=== PATIENT | female | born 1985 | race Two or more races ===

== ENCOUNTER 2020-04-18 18:20 | Inpatient (IN) | payer MEDICAID, OTHER ==
[~2020-04-18] VITALS: Ht 167.6 cm; Wt 85.8 kg
[2020-04-18] MEDS ORDERED: SODIUM CHLORIDE 0.9% 1,000 ML IV ONE ×2 (18:51→19:54)
[2020-04-18] MEDS ORDERED: KETOROLAC TROMETH 30 MG/ML 1ML VIAL IV ONE (19:00)
[2020-04-18 21:18] LABS: Eosinophils # (auto) 0 10 ^3/uL (0-0.8); Eosinophils % (auto) 0.2 % (0.0-7.0); Hemoglobin 10.6 g/dL (12.2-16.2); Lymphocytes # (auto) 1.1 10 ^3/uL (0.4-5.4); Neutrophils % (auto) 83.7 % (37.0-80.0)
[2020-04-18 21:19] LABS: Basophils # (auto) 0 10 ^3/uL (0-0.2); Basophils % (auto) 0.4 % (0.0-2.0); Hematocrit 34.9 % (36.0-46.0); Mean Corpuscular Hemoglobin 22.1 pg (28.0-32.0); Mean Corpuscular Hgb Conc. 30.4 g/dL (32.0-36.0); Mean Corpuscular Volume 72.8 fL (80.0-100.0); Monocytes # (auto) 0.3 10 ^3/uL (0-1.3); Monocytes % (auto) 3.7 % (0.0-12.0); Neutrophils # (auto) 7.9 10 ^3/uL (1.6-8.6); Platelet Count (auto) 264 10^3/uL (140-450); Red Blood Cells 4.79 10^6/uL (4.0-5.20); White Blood Cell 9.4 10^3/uL (4.4-10.8)
[2020-04-18 21:20] LABS: Red Cell Distribution Width 20.1 % (11.8-14.3)
[2020-04-18 21:36] LABS: CRP High Sensitivity 0.27 mg/dL (< 0.3)
[2020-04-18 21:37] LABS: Albumin 3.8 g/dL (3.4-5.0); BUN/Creatinine Ratio 9.7; Calcium 9.1 mg/dL (8.5-10.1); Potassium 3.6 mmol/L (3.5-5.1)
[2020-04-18 21:39] LABS: Urine Bacteria FEW /hpf (None Seen); Urine Blood Negative /uL (Negative); Urine Mucus FEW (None Seen); Urine Specific Gravity 1.031 (1.001-1.035); Urine WBC 1 /hpf (0 - 5)
[2020-04-18 21:40] LABS: Bilirubin, Total 0.3 mg/dL (0.2-1.0); Total Protein 8.2 g/dL (6.4-8.2)
[2020-04-19] MEDS ORDERED: AZITHROMYCIN 500MG/ 250ML 250 ML IV ONE (01:15)
[2020-04-19] MEDS ORDERED: cefTRIAXone 1GM/50ML D5W 50 ML IV ONE (01:15)
[2020-04-19] MEDS ORDERED: PROMETHAZINE HCL 25 MG/ML 1ML IV ONE (03:30)
[2020-04-19] MEDS ORDERED: LORazepam 2MG/ML-1ML VIAL IV ONE (05:00)
[2020-04-19] MEDS ORDERED: SODIUM CHLORIDE 0.9% 1,000 ML IV SCH (05:28)
[2020-04-19] MEDS ORDERED: NITROGLYCERIN 0.4 MG SL TAB SL PRN (05:30)
[2020-04-19] MEDS ORDERED: MORPHINE SULF INJ 2 MG/ML SYRINGE 1ML IV PRN (05:30)
[2020-04-19] MEDS: ALBUTEROL SULF HFA 90MCG INH 200DOSE IN SCH ×3 (06:00→22:00)
[2020-04-19] MEDS ORDERED: ALBUMIN 5% 250 ML IV ONE (07:00)
[2020-04-19] MEDS: cefTRIAXone 1GM/50ML D5W 50 ML IV SCH (09:35)
[2020-04-19] MEDS ORDERED: AZITHROMYCIN 500MG/ 250ML 250 ML IV SCH (10:00)
[2020-04-19] MEDS ORDERED: ENOXAPARIN SOD 40 MG/0.4 ML SYRINGE SC SCH (10:00)
[2020-04-19] MEDS: ZINC SULFATE 220mg CAP or TAB PO SCH (10:34)
[2020-04-19] MEDS: ASCORBIC ACID 1,000 MG TAB PO SCH (10:34)
[2020-04-19] MEDS: CHOLECALCIFEROL (VITD3) 2,000 UNIT CAP PO SCH (10:35)
[2020-04-19] MEDS: FAMOTIDINE 20 MG TAB PO SCH ×2 (10:35→21:11)
[2020-04-19] MEDS ORDERED: LEVOTHYROXINE SODIUM 100 MCG/5 ML INJ IV ONE (12:30)
[2020-04-19 13:46] VITALS: BP 102/52
[2020-04-19] MEDS: SODIUM CHLORIDE 0.9% 1,000 ML IV SCH ×2 (14:30→20:27)
[2020-04-19] MEDS: ONDANSETRON HCL 4 MG/2 ML VIAL IV PRN (15:37)
[2020-04-19] MEDS ORDERED: LEVO125T7 PO (18:49)
--- NOTE | 2020-04-19 20:00 | NUR ---
Opening Shift Note Assumed care of patient, awake and alert. No S/S of distress/SOB or pain. Instructed on POC and to call for assist PRN, will continue to monitor for changes Q1hr and prn. bed in low position and call light within reach.
--- NOTE | 2020-04-19 20:05 | NUR ---
IV insertion/IV removal IV DC'd with clean sterile technique, catheter fully intact. Pressure dressing applied to site. Patient tolerated well. IV access obtained, via clean sterile technique by inserting 22 gauge catheter at right FA after first attempt. IV secured properly. No trauma to site. Patient tolerated well.
--- NOTE | 2020-04-19 20:58 | NUR ---
Respiratory note: PT ASSESSED AT THIS TIME. HR 77, SPO2 98% ON ROOM AIR, RR 16. PT IN NO RESPIRATORY DISTRESS, MDI HELD AT THIS TIME. WILL CONTINUE TO MONITOR.
[2020-04-19] MEDS: HEPARIN SODIUM (PORCINE) 5000 UNITS/ML 1ML VIAL SC SCH (21:12)
[2020-04-19 21:52] VITALS: BP 93/49
--- NOTE | 2020-04-19 21:58 | NUR ---
per label folder saul will put in orders for am labs instead of scheduled time as they are not able to run hepatitis panel today.
[2020-04-20] MEDS: SODIUM CHLORIDE 0.9% 1,000 ML IV SCH (04:31)
[2020-04-20 05:00] VITALS: BP 109/71
[2020-04-20] MEDS: HEPARIN SODIUM (PORCINE) 5000 UNITS/ML 1ML VIAL SC SCH (05:29)
[2020-04-20 05:47] LABS: Basophils # (auto) 0 10 ^3/uL (0-0.2); Hemoglobin 8.8 g/dL (12.2-16.2); Nucleated Red Blood Cells % 0.1 %
[2020-04-20 05:49] LABS: Basophils % (auto) 0.7 % (0.0-2.0); Eosinophils # (auto) 0.1 10 ^3/uL (0-0.8); Eosinophils % (auto) 1.3 % (0.0-7.0); Hematocrit 28.2 % (36.0-46.0); Lymphocytes # (auto) 1.9 10 ^3/uL (0.4-5.4); Lymphocytes % (auto) 38.5 % (10.0-50.0); Mean Corpuscular Hemoglobin 22.9 pg (28.0-32.0); Mean Corpuscular Hgb Conc. 31.4 g/dL (32.0-36.0); Monocytes # (auto) 0.2 10 ^3/uL (0-1.3); Monocytes % (auto) 4.9 % (0.0-12.0); Neutrophils # (auto) 2.6 10 ^3/uL (1.6-8.6); Neutrophils % (auto) 54.6 % (37.0-80.0); Platelet Count (auto) 237 10^3/uL (140-450); Red Blood Cells 3.86 10^6/uL (4.0-5.20); Red Cell Distribution Width 20.7 % (11.8-14.3); White Blood Cell 4.8 10^3/uL (4.4-10.8)
[2020-04-20 06:03] LABS: Albumin 2.8 g/dL (3.4-5.0); Magnesium 2.3 mg/dL (1.6-2.6); Potassium 3.8 mmol/L (3.5-5.1)
[2020-04-20 06:07] LABS: BUN/Creatinine Ratio 9.1; Bilirubin, Total 0.2 mg/dL (0.2-1.0); Phosphorus 2.5 mg/dL (2.5-4.90)
--- NOTE | 2020-04-20 06:46 | NUR ---
patient rounds patient is awake and alert denies sob distress or pain. bed in low position. iv is intact and patent. bed in low position and call light within reach.
--- NOTE | 2020-04-20 07:32 | NUR ---
report given to pilo [email or web address]
[2020-04-20] MEDS: ALBUTEROL SULF HFA 90MCG INH 200DOSE IN SCH ×3 (07:35→20:47)
--- NOTE | 2020-04-20 07:35 | NUR ---
Respiratory note: MDI GIVEN BY RT, TOLERATED WELL. HR 64, RR 14, SPO2 98% RA, BS CLEAR AND DIMINISHED. NO SIGNS OR SYMPTOMS OF RESPIRATORY DISTRESS NOTED. WILL CONTINUE TO MONITOR ORDERED. Addendum: 04/20/20 at 0907 by SHAHIDA ALVAREZ RT CORRECTION. MDI NOT GIVEN. MDI NOT AVAILABLE FROM PHARMACY AT THIS TIME. PHARMACY WILL BE CONTACTED FOR MEDS WHEN COVID RESULTS BECOME AVAILABLE.
[2020-04-20 08:39] VITALS: BP 105/69
[2020-04-20] MEDS: PRENATAL VITAMIN TAB PO SCH ×2 (10:00→13:14)
[2020-04-20] MEDS: LEVOTHYROXINE SODIUM 100 MCG/5 ML INJ IV SCH (10:30)
[2020-04-20] MEDS: cefTRIAXone 1GM/50ML D5W 50 ML IV SCH (10:30)
[2020-04-20] MEDS: CHOLECALCIFEROL (VITD3) 2,000 UNIT CAP PO SCH (10:30)
[2020-04-20] MEDS: ZINC SULFATE 220mg CAP or TAB PO SCH (10:31)
[2020-04-20] MEDS: ASCORBIC ACID 1,000 MG TAB PO SCH (10:31)
[2020-04-20] MEDS: FAMOTIDINE 20 MG TAB PO SCH ×2 (10:31→22:21)
[2020-04-20] MEDS: ONDANSETRON HCL 4 MG/2 ML VIAL IV PRN (11:38)
[2020-04-20 12:43] VITALS: BP 119/74
[2020-04-20] MEDS: IRON SUCROSE COMPLEX 200 MG in SODIUM CHL 0.9% 100 ML IV SCH (13:12)
[2020-04-20] MEDS ORDERED: ENOXAPARIN SOD 40 MG/0.4 ML SYRINGE SC ONE (13:15)
--- NOTE | 2020-04-20 15:00 | NUR ---
Respiratory note: MEDICATION HELD WITH PENDING COVID RESULTS. PT IS NOT DISPLAYING RESPIRATORY DISTRESS AT THIS TIME. HR 66, RR 16, SPO2 99% ON RA. RN AWARE OF HELD MEDICATION.
[2020-04-20 16:54] VITALS: BP 117/75
--- NOTE | 2020-04-20 20:05 | NUR ---
open note assumed care of pt. upon entering room pt eyes are closed, breathing is even and unlabored on room air. pt bed locked, low and 2x rails up. call light in reach. pt does not appear to be in any distress. this nurse will return at later time to update pt on plan of care. this nurse to round q1hr and prn.
--- NOTE | 2020-04-20 21:22 | NUR ---
Respiratory note: MDI HELD AT THIS TIME AWAITING COVID RESULTS. NO DISTRESS NOTED, PULSE OX 100% ON RA, HR 66, RR 18
[2020-04-20 23:42] VITALS: BP 111/70
[2020-04-21 05:04] VITALS: BP 92/55
[2020-04-21] MEDS: ALBUTEROL SULF HFA 90MCG INH 200DOSE IN SCH ×3 (06:00→21:28)
[2020-04-21 07:06] LABS: RPR Non Reactive (Non Reactive)
[2020-04-21 08:43] VITALS: BP 103/61
[2020-04-21] MEDS: cefTRIAXone 1GM/50ML D5W 50 ML IV SCH (09:35)
[2020-04-21] MEDS: ASCORBIC ACID 1,000 MG TAB PO SCH (09:37)
[2020-04-21] MEDS: CHOLECALCIFEROL (VITD3) 2,000 UNIT CAP PO SCH (09:37)
[2020-04-21] MEDS: FAMOTIDINE 20 MG TAB PO SCH ×2 (09:37→21:56)
[2020-04-21] MEDS: ACETAMINOPHEN 325 MG TAB PO PRN ×2 (09:37→18:41)
[2020-04-21] MEDS: LEVOTHYROXINE SODIUM 100 MCG/5 ML INJ IV SCH (09:38)
[2020-04-21] MEDS: ZINC SULFATE 220mg CAP or TAB PO SCH (09:38)
[2020-04-21] MEDS: ENOXAPARIN SOD 40 MG/0.4 ML SYRINGE SC SCH (09:40)
[2020-04-21] MEDS: ONDANSETRON HCL 4 MG/2 ML VIAL IV PRN ×2 (11:51→17:23)
[2020-04-21] MEDS: PRENATAL VITAMIN TAB PO SCH (11:51)
[2020-04-21] MEDS ORDERED: ACETAMINOPHEN 500 MG TAB PO ONE (12:00)
[2020-04-21 13:00] VITALS: BP 103/72
[2020-04-21] MEDS: IRON SUCROSE COMPLEX 200 MG in SODIUM CHL 0.9% 100 ML IV SCH (13:47)
[2020-04-21 16:39] VITALS: BP 106/64
--- NOTE | 2020-04-21 21:28 | NUR ---
RT NOTE PT WAS SEEN BY RT FOR MDI TX. PT TOLERATES ALBUTEROL WELL VIA SPACER. CONT ORDERED Addendum: 04/21/20 at 2129 by Tona Zazueta RT Amended: Links added.
[2020-04-21 22:35] VITALS: BP 118/70
[2020-04-22 05:22] VITALS: BP 111/70
[2020-04-22 05:42] LABS: Basophils # (auto) 0 10 ^3/uL (0-0.2); Basophils % (auto) 0.9 % (0.0-2.0); Eosinophils # (auto) 0.1 10 ^3/uL (0-0.8); Hemoglobin 9.7 g/dL (12.2-16.2); Monocytes # (auto) 0.4 10 ^3/uL (0-1.3)
[2020-04-22 05:44] LABS: Eosinophils % (auto) 1.4 % (0.0-7.0); Hematocrit 31.1 % (36.0-46.0); Lymphocytes # (auto) 1.4 10 ^3/uL (0.4-5.4); Lymphocytes % (auto) 27.4 % (10.0-50.0); Mean Corpuscular Hemoglobin 22.8 pg (28.0-32.0); Mean Corpuscular Hgb Conc. 31.2 g/dL (32.0-36.0); Mean Corpuscular Volume 73.2 fL (80.0-100.0); Monocytes % (auto) 7.4 % (0.0-12.0); Neutrophils # (auto) 3.2 10 ^3/uL (1.6-8.6); Neutrophils % (auto) 62.9 % (37.0-80.0); Nucleated Red Blood Cells % 0.2 %; Platelet Count (auto) 287 10^3/uL (140-450); Red Blood Cells 4.25 10^6/uL (4.0-5.20); White Blood Cell 5.1 10^3/uL (4.4-10.8)
[2020-04-22 06:08] LABS: Red Cell Distribution Width 20.2 % (11.8-14.3)
[2020-04-22] MEDS: ALBUTEROL SULF HFA 90MCG INH 200DOSE IN SCH ×2 (06:35→13:55)
[2020-04-22 09:00] VITALS: BP 96/65
[2020-04-22] MEDS: FAMOTIDINE 20 MG TAB PO SCH (09:08)
[2020-04-22] MEDS: cefTRIAXone 1GM/50ML D5W 50 ML IV SCH (09:08)
[2020-04-22] MEDS: LEVOTHYROXINE SODIUM 100 MCG/5 ML INJ IV SCH (09:09)
[2020-04-22] MEDS: ENOXAPARIN SOD 40 MG/0.4 ML SYRINGE SC SCH (09:09)
[2020-04-22] MEDS: CHOLECALCIFEROL (VITD3) 2,000 UNIT CAP PO SCH (10:00)
[2020-04-22 10:14] LABS: Hepatitis B Surface Antibody Positive
[2020-04-22 10:51] LABS: Hepatitis A Total Antibody Negative
[2020-04-22] MEDS: IRON SUCROSE COMPLEX 200 MG in SODIUM CHL 0.9% 100 ML IV SCH (12:09)
[2020-04-22] MEDS: ACETAMINOPHEN 325 MG TAB PO PRN (12:21)
[2020-04-22] MEDS: ONDANSETRON HCL 4 MG/2 ML VIAL IV PRN (12:21)
--- NOTE | 2020-04-22 12:35 | NUR ---
Ej at bedside discussing POC. patient verbalized understanding and agrees with poc.
[2020-04-22 12:43] VITALS: BP 109/74
[2020-04-22 12:47] LABS: Hepatitis B Core Total AB Negative; Hepatitis B Surface Antigen Negative (Negative); Hepatitis C Antibody Negative (Negative)
--- NOTE | 2020-04-22 16:05 | NUR ---
SPOKE TO PHARMACIST WHO STATED PATIENT SHOULD NOT BE ON ANTIBIOTICS, INFORMED Tracy SIM AND PER Tracy SIM CANCEL DOXYCYCLINE ANTIBIOTICS PRESCRIPTION.
[2020-04-22 17:00] VITALS: BP 107/65
--- NOTE | 2020-04-22 17:24 | NUR ---
Discharge instructions given as ordered. Encourage to follow up with PMD as instructed. INSTRUCTED TO FOLLOW UP WITH PCP AND TO TAKE MEDICATIONS EXCEPT FOR DOXYCYCLINE PER M.D. ORDERS. All questions and concerns addressed. Patient verbalized understanding. Medication reconciliation form completed and copy given to patient. IV removed with catheter intact, pressure dressing applied. Telemetry unit returned to ICU. Patient taken to vehicle via wheelchair with all personal belongings, accompanied by staff and family member. No distress noted at time of departure.
== END 2020-04-22 17:24 | disposition home or self-care (01) | DRG 566 ==
LOC: EDBD 18:20 → ER 18:44 → TELE 18:45 → TELE-EAST 04-19 18:08
PROVIDERS: ADMIT Nurse Practitioner; ATTEND Internal Medicine
DX: O98.511 Other viral diseases complicating pregnancy, first trimester (principal); U07.1 COVID-19; R09.02 Hypoxemia; E03.9 Hypothyroidism, unspecified; N17.0 Acute kidney failure with tubular necrosis; J12.89 Other viral pneumonia; O99.511 Diseases of the respiratory system complicating pregnancy, first trimester; Z3A.08 8 weeks gestation of pregnancy; O99.281 Endocrine, nutritional and metabolic diseases complicating pregnancy, first trimester; O26.831 Pregnancy related renal disease, first trimester; O99.011 Anemia complicating pregnancy, first trimester; O99.211 Obesity complicating pregnancy, first trimester; E66.9 Obesity, unspecified; D50.9 Iron deficiency anemia, unspecified; Z90.49 Acquired absence of other specified parts of digestive tract; J45.909 Unspecified asthma, uncomplicated
CPT/HCPCS: 36415; 71045; 76801; 80053; 81001; 81025; 82728; 83605; 83615; 83735; 84100; 84439; 84443; 84702; 85025; 85379; 86141; 86592; 86703; 86704; 86706; 86708; 86803; 87040; 87340; 94640; 94760; 96365; 96366; 96367; 96375; G0378; J0696; J1756; J1885; J2405; J3490

== ENCOUNTER 2020-07-02 14:45 | Observation (INO) | payer MEDICAID ==
[~2020-07-02 14:45] MED LIST: LEVO125T7 PO
[2020-07-02] MEDS ORDERED: LACTATED RINGER'S 1,000 ML IV ONE ×2 (16:15→18:00)
[2020-07-02] MEDS ORDERED: ONDANSETRON HCL 4 MG/2 ML VIAL IV ONE (16:15)
[2020-07-02 16:45] LABS: Amphetamine Screen, Urine POSITIVE (NEGATIVE); Barbiturate Scree,Urine NEGATIVE (NEGATIVE); Benzodiazephine Screen, Urine NEGATIVE (NEGATIVE); Cannabinoid Screen, Urine NEGATIVE (NEGATIVE); Cocaine Screen, Urine NEGATIVE (NEGATIVE); Opiate Scree,Urine NEGATIVE (NEGATIVE); Phencyclidine Screen, Urine NEGATIVE (NEGATIVE)
[2020-07-02 16:49] LABS: Basophils # (auto) 0.1 10 ^3/uL (0-0.2); Basophils % (auto) 0.8 % (0.0-2.0); Eosinophils # (auto) 0.1 10 ^3/uL (0-0.8); Eosinophils % (auto) 0.9 % (0.0-7.0); Hematocrit 39.9 % (36.0-46.0); Hemoglobin 13.2 g/dL (12.2-16.2); Lymphocytes # (auto) 1.4 10 ^3/uL (0.4-5.4); Lymphocytes % (auto) 20.7 % (10.0-50.0); Mean Corpuscular Hemoglobin 29.1 pg (28.0-32.0); Mean Corpuscular Volume 88.2 fL (80.0-100.0); Monocytes # (auto) 0.3 10 ^3/uL (0-1.3); Monocytes % (auto) 5.2 % (0.0-12.0); Neutrophils # (auto) 4.8 10 ^3/uL (1.6-8.6); Neutrophils % (auto) 72.4 % (37.0-80.0); Nucleated Red Blood Cells % 0.1 %; Platelet Count (auto) 232 10^3/uL (140-450); Red Blood Cells 4.52 10^6/uL (4.0-5.20); Red Cell Distribution Width 19.4 % (11.8-14.3); White Blood Cell 6.7 10^3/uL (4.4-10.8)
[2020-07-02 17:02] LABS: INR 0.97 (0.9-1.15); Partial Thromboplastin Time 25.2 sec (23.0-31.2)
[2020-07-02 17:06] LABS: Albumin 3.3 g/dL (3.4-5.0); BUN/Creatinine Ratio 7.4; Potassium 3.9 mmol/L (3.5-5.1)
[2020-07-02 17:09] LABS: Bilirubin, Total 0.2 mg/dL (0.2-1.0); Total Protein 8.1 g/dL (6.4-8.2)
[2020-07-02] MEDS ORDERED: PREN-96 PO (18:20)
[2020-07-02 18:29] LABS: Urine Bacteria FEW /hpf (None Seen); Urine Blood Negative /uL (Negative); Urine Mucus FEW (None Seen); Urine Specific Gravity 1.023 (1.001-1.035); Urine WBC 1 /hpf (0 - 5)
[2020-07-03 05:08] LABS: RPR Non Reactive (Non Reactive)
[2020-07-03 08:06] LABS: Rubella Antibodies, IgG 5.37 index (Immune >0.99)
== END 2020-07-02 19:03 | disposition home or self-care (01) ==
LOC: LDRP 14:45
PROVIDERS: ADMIT Obstetrics & Gynecology; ATTEND Obstetrics & Gynecology
DX: O26.892 Other specified pregnancy related conditions, second trimester (principal); R42 Dizziness and giddiness; R11.0 Nausea; R10.9 Unspecified abdominal pain; O99.282 Endocrine, nutritional and metabolic diseases complicating pregnancy, second trimester; E03.9 Hypothyroidism, unspecified; Z3A.19 19 weeks gestation of pregnancy; Z98.891 History of uterine scar from previous surgery; Z79.899 Other long term (current) drug therapy
CPT/HCPCS: 36415; 59025; 76805; 80053; 80307; 81001; 81002; 84112; 85025; 85610; 85730; 86592; 86703; 86762; 86850; 86900; 86901; 87340; 96361; 96374; G0378; J2405; 96360; 96375

== ENCOUNTER 2020-09-03 10:10 | Observation (INO) | payer MEDICAID ==
[~2020-09-03 10:10] MED LIST changes: +PREN-96 PO
== END 2020-09-03 10:59 | disposition home or self-care (01) ==
LOC: LDRP 10:10
PROVIDERS: ADMIT Obstetrics & Gynecology; ATTEND Obstetrics & Gynecology
DX: O36.8130 Decreased fetal movements, third trimester, not applicable or unspecified (principal); O99.283 Endocrine, nutritional and metabolic diseases complicating pregnancy, third trimester; E03.9 Hypothyroidism, unspecified; Z3A.29 29 weeks gestation of pregnancy
CPT/HCPCS: 59025; 81002; G0378

== ENCOUNTER 2020-11-09 07:22 | Observation (INO) | payer MEDICAID ==
[~2020-11-09] VITALS: Ht 165.1 cm; Wt 88.0 kg
[2020-11-09 10:34] LABS: Amphetamine Screen, Urine NEGATIVE (NEGATIVE); Barbiturate Scree,Urine NEGATIVE (NEGATIVE); Benzodiazephine Screen, Urine NEGATIVE (NEGATIVE); Cannabinoid Screen, Urine NEGATIVE (NEGATIVE); Cocaine Screen, Urine NEGATIVE (NEGATIVE); Opiate Scree,Urine NEGATIVE (NEGATIVE); Phencyclidine Screen, Urine NEGATIVE (NEGATIVE)
== END 2020-11-09 09:35 | disposition home or self-care (01) ==
LOC: LDRP 07:22
PROVIDERS: ADMIT Obstetrics & Gynecology; ATTEND Obstetrics & Gynecology
DX: O62.9 Abnormality of forces of labor, unspecified (principal); O34.63 Maternal care for abnormality of vagina, third trimester; N89.8 Other specified noninflammatory disorders of vagina; Z3A.37 37 weeks gestation of pregnancy; Z79.899 Other long term (current) drug therapy
CPT/HCPCS: 59025; 76815; 80307; 81002; 84112; G0378; Q0114

== ENCOUNTER 2021-02-07 17:38 | Emergency (ER) | payer MEDICAID, OTHER ==
[~2021-02-07] VITALS: Ht 165.1 cm; Wt 80.7 kg
[2021-02-07] MEDS ORDERED: ACETAMINOPHEN 325 MG TAB PO ONE (19:15)
[2021-02-07 19:29] LABS: Urine Bacteria FEW /hpf (None Seen); Urine Blood Negative /uL (Negative); Urine Mucus FEW (None Seen); Urine Specific Gravity 1.018 (1.001-1.035); Urine WBC 5 /hpf (0 - 5)
[2021-02-07 19:35] VITALS: BP 111/65
== END 2021-02-07 21:12 | disposition home or self-care (01) ==
LOC: ER 17:38 → EDBD 17:38 → ER 21:10
DX: S43.402A Unspecified sprain of left shoulder joint, initial encounter (principal); S83.92XA Sprain of unspecified site of left knee, initial encounter; S80.212A Abrasion, left knee, initial encounter; F17.210 Nicotine dependence, cigarettes, uncomplicated; J45.909 Unspecified asthma, uncomplicated; Z90.49 Acquired absence of other specified parts of digestive tract; Z32.02 Encounter for pregnancy test, result negative; V43.52XA Car driver injured in collision with other type car in traffic accident, initial encounter; Y93.89 Activity, other specified; Y92.488 Other paved roadways as the place of occurrence of the external cause; Y99.8 Other external cause status
CPT/HCPCS: 73030; 73110; 73562; 81001; 81025

== ENCOUNTER 2021-06-01 18:50 | Emergency (ER) | payer MEDICAID, OTHER ==
[~2021-06-01] VITALS: Ht 165.1 cm; Wt 73.0 kg
[2021-06-01 19:17] LABS: Basophils # (auto) 0.1 10 ^3/uL (0-0.2); Basophils % (auto) 1.1 % (0.0-2.0); Eosinophils # (auto) 0.7 10 ^3/uL (0-0.8); Eosinophils % (auto) 8.2 % (0.0-7.0); Hematocrit 40.7 % (36.0-46.0); Hemoglobin 13.3 g/dL (12.2-16.2); Lymphocytes # (auto) 2.6 10 ^3/uL (0.4-5.4); Lymphocytes % (auto) 29.6 % (10.0-50.0); Mean Corpuscular Hgb Conc. 32.8 g/dL (32.0-36.0); Mean Corpuscular Volume 88.5 fL (80.0-100.0); Monocytes # (auto) 0.4 10 ^3/uL (0-1.3); Monocytes % (auto) 4.6 % (0.0-12.0); Neutrophils % (auto) 56.5 % (37.0-80.0); Nucleated Red Blood Cells % 0.6 %; White Blood Cell 8.8 10^3/uL (4.4-10.8)
[2021-06-01 19:41] LABS: Albumin 3.4 g/dL (3.4-5.0); Calcium 8.6 mg/dL (8.5-10.1)
[2021-06-01 19:44] LABS: Bilirubin, Total 0.3 mg/dL (0.2-1.0); Total Protein 7.2 g/dL (6.4-8.2)
[2021-06-01] MEDS ORDERED: SODIUM CHLORIDE 0.9% 1,000 ML IV ONE (20:45)
[2021-06-01] MEDS ORDERED: KETOROLAC TROMETH 30 MG/ML 1ML VIAL IV ONE (20:45)
[2021-06-01] MEDS ORDERED: ONDANSETRON HCL 4 MG/2 ML VIAL IV ONE (20:45)
[2021-06-01 21:00] LABS: Potassium 5.6 mmol/L (3.5-5.1)
[2021-06-01 22:54] LABS: Albumin 3.5 g/dL (3.4-5.0); Calcium 8.8 mg/dL (8.5-10.1)
[2021-06-01 22:58] LABS: Bilirubin, Total 0.2 mg/dL (0.2-1.0); Total Protein 6.8 g/dL (6.4-8.2)
[2021-06-01 23:35] LABS: BUN/Creatinine Ratio 7.9
[2021-06-02 00:41] VITALS: BP 148/88
== END 2021-06-02 00:48 | disposition home or self-care (01) ==
LOC: ER 18:51
DX: N93.8 Other specified abnormal uterine and vaginal bleeding (principal); J45.909 Unspecified asthma, uncomplicated; F17.210 Nicotine dependence, cigarettes, uncomplicated; E03.9 Hypothyroidism, unspecified; Z90.49 Acquired absence of other specified parts of digestive tract; Z79.899 Other long term (current) drug therapy
CPT/HCPCS: 36415; 76830; 76856; 80053; 84702; 85025